=== PATIENT | female | born 2000 ===

== ENCOUNTER 2021-03-22 10:05 | Emergency (ER) | payer SELFPAY ==
[2021-03-22 10:14] VITALS: BP 143/89
[2021-03-22 10:49] LABS: Basophils % (Auto) 0.6 % (0.0-1.8); Eosinophils # (Auto) 0.1 K/mm3 (0.0-0.4); Eosinophils % (Auto) 1.3 % (0.0-4.3); Hematocrit 41.1 % (30.3-42.9); Hemoglobin 13.6 gm/dl (10.1-14.3); Lymphocytes # (Auto) 3.2 K/mm3 (1.2-5.4); Lymphocytes % (Auto) 53.5 % (13.4-35.0); Mean Corpuscular HGB Conc 33 % (30-34); Mean Corpuscular Volume 89 fl (79-97); Monocytes # (Auto) 0.5 K/mm3 (0.0-0.8); Monocytes % (Auto) 7.6 % (0.0-7.3); Platelet Count 244 K/mm3 (140-440); Red Cell Distribution Width 13.8 % (13.2-15.2)
--- NOTE | 2021-03-22 10:53 | Emergency Department Report ---
ED Chest Pain HPI - General Chief Complaint: Chest Pain Stated Complaint: CHEST PAIN Time Seen by Provider: 03/22/21 10:11 Source: patient Mode of arrival: Ambulatory Limitations: No Limitations - History of Present Illness Initial Comments: Patient is a 20-year-old female presents emergency room complaints of chest pain that began yesterday. She states that the pain moves all around the chest. She denies any shortness of breath, leg swelling, pleuritic pain, hemoptysis, cough, fever, nausea, vomiting, diarrhea. She denies any past medical history. She denies any allergies to medications. She states that she is a non-smoker. She denies any drug use. She denies any alcohol use. She denies any family cardiac history. Severity scale (0 -10): 4 - Related Data Previous Rx's Medication Instructions Recorded Last Taken Type Simethicone [Gas-X] 62.5 mg PO PRN PRN #1 strip 03/22/21 Unknown Rx Heart Score - HEART Score History: Slightly suspicious EKG: Normal Age: < 45 Risk factors: No known risk factors Troponin: < normal limit HEART Score: 0 - EKG Read Time Time EKG Completed: 10:14 EKG Read Time: 10:16 ED Review of Systems ROS: Stated complaint: CHEST PAIN Other details as noted in HPI Comment: All other systems reviewed and negative ED Past Medical Hx - Past Medical History Previous Medical History?: No - Surgical History Past Surgical History?: No - Medications Home Medications: Home Medications Medication Instructions Recorded Confirmed Last Taken Type Simethicone [Gas-X] 62.5 mg PO PRN PRN #1 strip 03/22/21 Unknown Rx ED Physical Exam - General Limitations: No Limitations General appearance: alert, in no apparent distress - Head Head exam: Present: atraumatic, normocephalic - Eye Eye exam: Present: normal appearance - ENT ENT exam: Present: mucous membranes moist - Respiratory Respiratory exam: Present: normal lung sounds bilaterally. Absent: respiratory distress, wheezes, rales, rhonchi, stridor, chest wall tenderness, accessory muscle use, decreased breath sounds, prolonged expiratory - Cardiovascular Cardiovascular Exam: Present: normal rhythm, tachycardia, normal heart sounds. Absent: systolic murmur, diastolic murmur, rubs, gallop - Neurological Exam Neurological exam: Present: alert, oriented X3 - Psychiatric Psychiatric exam: Present: normal affect, normal mood - Skin Skin exam: Present: warm, dry, intact ED Course Vital Signs 03/22/21 03/22/21 03/22/21 10:11 12:01 12:37 Temperature 98.9 F Pulse Rate 117 H 86 84 Respiratory 18 18 16 Rate Blood Pressure 143/89 [Left] O2 Sat by Pulse 100 98 99 Oximetry OUMAR score - Oumar Score Age > 65: (0) No Aspirin use within the Past 7 Days: (0) No 3 or more CAD Risk Factors: (0) No 2 or more Angina events in past 24 hrs: (0) No Known CAD with more than 50% Stenosis: (0) No Elevated Cardiac Markers: (0) No ST Deviation Greater than 0.5mm: (0) No OUMAR Score: 0 ED Medical Decision Making - Lab Data Result diagrams: 03/22/21 10:03/22/21 10: Lab Results 03/22/21 03/22/21 03/22/21 Range/Units 10: 10: 10: WBC 6.1 (4.5-11.0) K/mm3 RBC 4.60 (3.65-5.03) M/mm3 Hgb 13.6 (10.1-14.3) gm/dl Hct 41.1 (30.3-42.9) % MCV 89 (79-97) fl MCH 30 (28-32) pg MCHC 33 (30-34) % RDW 13.8 (13.2-15.2) % Plt Count 244 (140-440) K/mm3 Lymph % (Auto) 53.5 H (13.4-35.0) % [place] % (Auto) 7.6 H (0.0-7.3) % Eos % (Auto) 1.3 (0.0-4.3) % Baso % (Auto) 0.6 (0.0-1.8) % Lymph # (Auto) 3.2 (1.2-5.4) K/mm3 [place] # (Auto) 0.5 (0.0-0.8) K/mm3 Eos # (Auto) 0.1 (0.0-0.4) K/mm3 Baso # (Auto) 0.0 (0.0-0.1) K/mm3 Seg Neutrophils % 37.0 L (40.0-70.0) % Seg Neutrophils # 2.2 (1.8-7.7) K/mm3 D-Dimer (0-234) ng/mlDDU Sodium 141 (137-145) mmol/L Potassium 3.6 (3.6-5.0) mmol/L Chloride 104.9 (98-107) mmol/L Carbon Dioxide 22 (22-30) mmol/L Anion Gap 18 mmol/L BUN 8 (7-17) mg/dL Creatinine 0.6 (0.6-1.2) mg/dL Estimated GFR > 60 ml/min BUN/Creatinine Ratio 13 % Glucose 113 H (65-100) mg/dL Calcium 9.5 (8.4-10.2) mg/dL Magnesium 2.00 (1.7-2.3) mg/dL Total Bilirubin 0.30 (0.1-1.2) mg/dL AST 12 (5-40) units/L ALT 7 (7-56) units/L Alkaline Phosphatase 65 (35-129) units/L Troponin T < 0.010 (0.00-0.029) ng/mL Total Protein 7.7 (6.3-8.2) g/dL Albumin 4.6 (3.9-5) g/dL Albumin/Globulin Ratio 1.5 % TSH 2.340 (0.270-4.200) mlU/mL 03/22/21 Range/Units 11:42 WBC (4.5-11.0) K/mm3 RBC (3.65-5.03) M/mm3 Hgb (10.1-14.3) gm/dl Hct (30.3-42.9) % MCV (79-97) fl MCH (28-32) pg MCHC (30-34) % RDW (13.2-15.2) % Plt Count (140-440) K/mm3 Lymph % (Auto) (13.4-35.0) % [place] % (Auto) (0.0-7.3) % Eos % (Auto) (0.0-4.3) % Baso % (Auto) (0.0-1.8) % Lymph # (Auto) (1.2-5.4) K/mm3 [place] # (Auto) (0.0-0.8) K/mm3 Eos # (Auto) (0.0-0.4) K/mm3 Baso # (Auto) (0.0-0.1) K/mm3 Seg Neutrophils % (40.0-70.0) % Seg Neutrophils # (1.8-7.7) K/mm3 D-Dimer < 135.00 (0-234) ng/mlDDU Sodium (137-145) mmol/L Potassium (3.6-5.0) mmol/L Chloride (98-107) mmol/L Carbon Dioxide (22-30) mmol/L Anion Gap mmol/L BUN (7-17) mg/dL Creatinine (0.6-1.2) mg/dL Estimated GFR ml/min BUN/Creatinine Ratio % Glucose (65-100) mg/dL Calcium (8.4-10.2) mg/dL Magnesium (1.7-2.3) mg/dL Total Bilirubin (0.1-1.2) mg/dL AST (5-40) units/L ALT (7-56) units/L Alkaline Phosphatase (35-129) units/L Troponin T (0.00-0.029) ng/mL Total Protein (6.3-8.2) g/dL Albumin (3.9-5) g/dL Albumin/Globulin Ratio % TSH (0.270-4.200) mlU/mL Vital Signs 03/22/21 03/22/21 03/22/21 10:11 12:01 12:37 Temperature 98.9 F Pulse Rate 117 H 86 84 Respiratory 18 18 16 Rate Blood Pressure 143/89 [Left] O2 Sat by Pulse 100 98 99 Oximetry - EKG Data EKG shows normal: sinus rhythm Rate: tachycardia - EKG Data 03/22/21 11:20 RAD LAE no STEMI - Radiology Data Radiology results: report reviewed Ordering Physician: ROSAS CANO Date of Service: 03/22/21 Procedure(s): XR chest routine 2V Accession Number(s): [id number] cc: ROSAS CANO Fluoro Time In Minutes: XR chest routine 2V INDICATION / CLINICAL INFORMATION: CP. COMPARISON: None available. FINDINGS: SUPPORT DEVICES: None. HEART /PULMONARY VASCULATURE: No significant abnormality. LUNGS / PLEURA: No significant pulmonary or pleural abnormality. No pneumothorax. ADDITIONAL FINDINGS: No significant additional findings. IMPRESSION: 1. No acute findings. Signer Name: George Nation MD Signed: 03/22/2021 10:47 AM Workstation Name: [id number] Transcribed By: ISIAH Dictated By: GEORGE NATION MD Electronically Authenticated By: GEORGE NATION MD Signed Date/Time: 03/22/211046 DD/ 46 TD/TT: - Medical Decision Making Patient is a 20-year-old female presents emergency room complaints of chest pain that began yesterday. She states that the pain moves all around the chest. She denies any shortness of breath, leg swelling, pleuritic pain, hemoptysis, cough, fever, nausea, vomiting, diarrhea. She denies any past medical history. She denies any allergies to medications. She states that she is a non-smoker. She denies any drug use. She denies any alcohol use. She denies any family cardiac history. Initial vitals with tachycardia which improved upon repeat. EKG shows right axis deviation, left atrial enlargement, no STEMI. Chest x-ray: 1. No acute findings. Labs are normal. Troponin is negative, patient has had symptoms for 24 hours, the up-to-date medical literature states that there is sufficient evidence for 1 troponin for prolonged symptoms. D-dimer is negative, patient is low risk based on Wells criteria for PE, PE unlikely. Heart score is 0, OUMAR score 0. Given that pain moves all around the chest, could potentially be related to gas pain. Will have patient follow-up with primary care and cardiology. Discussed strict return precautions. Advised patient Please take medication as prescribed. Follow-up with your primary care doctor. Follow-up with a roller bearing inspector. Return to emergency room for any new or worsening symptoms. Critical care attestation.: If time is entered above; I have spent that time in minutes in the direct care of this critically ill patient, excluding procedure time. ED Disposition Clinical Impression: Chest pain Qualifiers: Chest pain type: unspecified Qualified Code(s): R07.9 - Chest pain, unspecified Disposition: HOME / SELF CARE / HOMELESS Is pt being admited?: No Does the pt Need Aspirin: No Condition: Stable Instructions: Nonspecific Chest Pain, Adult Additional Instructions: Please take medication as prescribed. Follow-up with your primary care doctor. Follow-up with a roller bearing inspector. Return to emergency room for any new or worsening symptoms. Prescriptions: Simethicone [Gas-X] 62.5 mg PO PRN PRN #1 strip PRN Reason: gas pain Referrals: your, primary care doctor [Other] - 2-3 Days JORDAN NICKERSON MD [Staff Physician] - 2-3 Days Time of Disposition: 12:16 Print Language: DIVEHI
[2021-03-22 11:09] LABS: Alanine Aminotransferase 7 units/L (7-56); Albumin 4.6 g/dL (3.9-5); Blood Urea Nitrogen 8 mg/dL (7-17); Calcium 9.5 mg/dL (8.4-10.2); Hemolysis Index 8
[2021-03-22 11:13] LABS: BUN/Creatinine Ratio 13
--- NOTE | 2021-03-25 11:05 | Electrocardiograph Report ---
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
== END 2021-03-22 12:37 | disposition home or self-care (01) ==
LOC: ED 10:05
DX: R07.89 Other chest pain (principal); Z79.899 Other long term (current) drug therapy
CPT/HCPCS: 36415; 71046; 80053; 83735; 84443; 84484; 85025; 85379; 93005; 99284